=== PATIENT | female | born 1995 | race African-American/Black ===

== ENCOUNTER 2016-12-20 09:31 | Emergency (ER) | payer MEDICAID, OTHER ==
[~2016-12-20] VITALS: Ht 165.1 cm; Wt 77.1 kg
[~2016-12-20 09:31] MED LIST: FERR-7 PO; PREN-153 OR
[2016-12-20 10:22] LABS: Basophils # (auto) 0 uL; Basophils % (auto) 0.4 % (0.0-2.0); CONDITION Y; Eosinophils # (auto) 0.2 uL; Eosinophils % (auto) 3.4 % (0.0-7.0); Hematocrit 36.2 % (36.0-46.0); Hemoglobin 11.7 g/dL (12.2-16.2); Lymphocytes # (auto) 2.2 uL; Mean Corpuscular Hemoglobin 28.1 pg (28.0-32.0); Mean Corpuscular Hgb Conc. 32.3 g/dL (32.0-36.0); Mean Corpuscular Volume 87.2 fL (80.0-100.0); Mean Platelet Volume 7.8 fL (7.4-10.4); Monocytes # (auto) 0.7 uL; Monocytes % (auto) 10.5 % (0.0-12.0); Neutrophils # (auto) 3.5 uL; Neutrophils % (auto) 52.7 % (37.0-80.0); Platelet Count (auto) 284 10^3/uL (140-450); Red Cell Distribution Width 17.9 % (11.6-16.0); White Blood Cell 6.7 10^3/uL (4.4-10.8)
[2016-12-20 10:25] LABS: Albumin 3.8 g/dL (3.4-5.0); Calcium 8.5 mg/dL (8.5-10.1); Potassium 3.9 mmol/L (3.5-5.1)
[2016-12-20 10:27] LABS: Bilirubin, Total 0.2 mg/dL (0.2-1.0); Total Protein 7.7 g/dL (6.4-8.2)
[2016-12-20] MEDS ORDERED: SODIUM CHLORIDE 0.9% 1,000 ML IV ONE (10:45)
[2016-12-20 12:29] VITALS: BP 140/73
[2016-12-20 13:23] LABS: Urine Bilirubin Negative (Negative); Urine Glucose Normal (Normal); Urine Ketone TRACE (Negative); Urine Mucus FEW (None Seen); Urine Nitrite Negative (Negative); Urine RBC 2906 /hpf (0 - 4); Urine Squamous Epithelial Cell FEW /hpf (<5); Urine Urobilinogen Normal (Negative)
[2016-12-20 13:30] LABS: Urine Blood 3+ /uL (Negative); Urine Color Red (Yellow)
== END 2016-12-20 13:29 | disposition home or self-care (01) ==
LOC: ER 09:31
DX: O46.91 Antepartum hemorrhage, unspecified, first trimester (principal); Z79.899 Other long term (current) drug therapy
CPT/HCPCS: 36415; 76801; 76817; 80053; 81001; 84702; 85025; 86901; 96360; 99285; J7030

== ENCOUNTER 2017-03-20 19:20 | Emergency (ER) | payer MEDICAID ==
[~2017-03-20] VITALS: Ht 165.1 cm; Wt 77.1 kg
[2017-03-20 19:28] VITALS: BP 133/79
[2017-03-20] MEDS ORDERED: BACLOFEN 10 MG TAB PO ONE (22:45)
[2017-03-20] MEDS ORDERED: IBUPROFEN 600 MG TAB PO ONE (22:45)
== END 2017-03-20 23:08 | disposition home or self-care (01) ==
LOC: ER 19:24
DX: S46.912A Strain of unspecified muscle, fascia and tendon at shoulder and upper arm level, left arm, initial encounter (principal); S46.911A Strain of unspecified muscle, fascia and tendon at shoulder and upper arm level, right arm, initial encounter; V43.62XA Car passenger injured in collision with other type car in traffic accident, initial encounter; Y93.89 Activity, other specified; Y92.89 Other specified places as the place of occurrence of the external cause; Y99.8 Other external cause status
CPT/HCPCS: 72040